=== PATIENT | female | born 1960 | race Caucasian/White ===

== ENCOUNTER 2023-11-22 00:13 | Emergency (ER) | payer OTHER, SELFPAY ==
[2023-11-22 00:14] VITALS: BP 171/96
[2023-11-22 00:54] LABS: % Basophils 0.3 % (0-2); % Eosinophils 0.5 % (0-6); % Immature Granulocytes 0.4 % (0-0.5); % Lymphocytes 12.7 % (20.5-51.1); % Monocytes 5.1 % (1.7-9.3); Absolute Eosinophils 0.1 10^3/uL (0-0.7); Absolute Immature Granulocytes 0.1 10^3/uL (0-0.05); Absolute Lymphocytes 1.6 10^3/uL (1.2-3.4); Absolute Monocytes 0.6 10^3/uL (0.1-0.6); Absolute Neutrophils 9.8 10^3/uL (1.4-6.5); Hematocrit 37.4 % (37.0-47.0); Hemoglobin 13.3 g/dL (12.0-16.0); Mean Corp Hgb Conc. 35.6 g/dL (33.0-37.0); Mean Corpuscular Hgb 30.9 pg (27.0-31.0); Mean Platelet Volume 9.4 fL (7.4-10.4); Nucleated Red Blood Cells % 0 %; Platelet Count 216 10^3/uL (130-400); Red Cell Dist. Width 12.4 % (11.5-14.5); White Blood Cell Count 12.2 10^3/uL (4.8-10.8)
[2023-11-22 01:09] LABS: ALT (SGPT) 17 U/L (0-35); AST (SGOT) 27 U/L (14-36); Albumin 4.7 g/dl (3.5-5.0); Alkaline Phosphatase 49 U/L (38-126); Blood Urea Nitrogen 20 mg/dl (7-17); Calcium 9.8 mg/dl (8.4-10.2); Carbon Dioxide 25 mmol/L (22-30); Chloride 107 mmol/L (98-107); Glucose 141 mg/dl (70-99); Lipase 432 U/L (23-300); Potassium 3.8 mmol/L (3.5-5.1); Sodium 142 mmol/L (135-145); Total Bilirubin 0.4 mg/dl (0.2-1.3); Total Protein 7.2 g/dl (6.3-8.2); eGFR > 60.00
--- NOTE | 2023-11-22 02:57 | ED.GENMED ---
History of Present Illness
<JORGE Evans - Last Filed: 11/24/23 17:56>
General
Chief Complaint: Abdominal Pain
Source: patient
Exam Limitations: none
Time Seen by Provider: 11/22/23 02:46
Travel History
Have you had any contact with someone who has COVID-19?: No
Do you have any symptoms of coronavirus? Fever > 100 degrees, chills, cough, shortness of breath, sore throat, loss of taste or smell, muscle aches, or headache?: No
History of Present Illness
History of Present Illness:
This is a 63 year old female that comes in with c/o left sided abd pain. States that her mom is in [facility] and they are here from [place] to get her settled. States that they have been doing a lot of running around. States that she started
with loose stool a few days ago. Then tonight about 9pm she had some left overs and a small glass of wine and with in minutes she started with vomiting. Denies any fever, chills, chest pain, SOB, diarrhea, headache, dizziness, urinary burning.
Past History
<JORGE Evans - Last Filed: 11/24/23 17:56>
Past History
ED Past Medical History: Asthma and Other (Diverticulitis, Renal calculus, )
ED Past Surgical History: Other (Left mastectomy with bilateral reconstruction)
Social History
Tobacco: Non-smoker
Alcohol: Occasional
Personal:
Living: alone
Review of Systems
<JORGE Evans - Last Filed: 11/24/23 17:56>
Review of Systems
All Other Systems: ROS reviewed and negative except as documented in HPI and ROS
Constitutional: Reports no symptoms; Denies fever or chills
EENT: Reports no symptoms
Respiratory: Reports no symptoms; Denies cough or trouble breathing
Cardiac: Reports no symptoms; Denies chest pain
ABD/GI: Reports abdominal pain, nausea and vomiting; Denies diarrhea
: Reports no symptoms; Denies dysuria, frequency or urgency
Musculoskeletal: Reports no symptoms
Skin: Reports no symptoms
Neurological: Reports no symptoms; Denies dizzy or headache
Psychiatric: Reports no symptoms
Phy Exam
<JORGE Evans - Last Filed: 11/24/23 17:56>
General Physical Exam
General Presentation: no apparent distress
General age: appears stated age
General Skin: warm and dry
General Habitus: normal
General Mental: alert
General Hydration: dry mucous membranes
ENT Exam
ENT Exam: TM's normal, pharynx normal and neck supple
Eye Exam
Eye Exam: EOMI
Cardiovascular Exam
Cardiovascular Exam: regular rate/rhythm, no edema, no murmur and normal peripheral pulses
Pulmonary Exam
Pulmonary Exam: lungs clear, no respiratory distress, no rales, chest non tender, no crackles, no rhonchi, no wheezing and no cough
Gastrointestinal Exam
Gastrointestinal Exam: normal bowel sounds, soft, no organomegaly, no pulsatile mass, non distended and tender (LLQ tenderness with palpation)
Musculoskeletal Exam
Musculoskeletal Exam: full ROM and no edema
Skin Exam
Skin Exam: normal color, warm/dry, no rash and no petechia
Psychiatric Exam
Psychiatric Exam: normal mood/affect
Course
<JORGE Evans - Last Filed: 11/24/23 17:56>
Orders/Labs/Results
Orders:
Orders
11/22/23 00:43
Complete Blood Count/With Diff Urgent
Comprehensive Metabolic Panel Urgent
Lipase Urgent
11/22/23 02:56
CT Abd/pel (oral only)-[facility] Only Urgent
Comment:
Reason For Exam: Left sided abd tenderness
0.9% Sodium Chloride 1000 ml [Nss] 1,000 ml IV BOLUS
Iohexol [Omnipaque] See Protocol PO NOW STA
11/22/23 02:58
Ondansetron Injectable [Zofran] 4 mg IV NOW STA
11/22/23 06:09
LevoFLOXacin [Levaquin] 500 mg PO NOW STA
MetroNIDAZOLE [Flagyl] 500 mg PO NOW STA
Abnormal Lab Results
11/22/23
00:43
WBC 12.2 H 10^3/uL
(4.8-10.8)
Abs Immat Gran (auto) 0.1 H 10^3/uL
(0-0.05)
Absolute Neuts (auto) 9.8 H 10^3/uL
(1.4-6.5)
Neutrophils % 81.0 H %
(42.2-75.2)
Lymphocytes % 12.7 L %
(20.5-51.1)
BUN 20 H mg/dl
(7-17)
Glucose 141 H mg/dl
(70-99)
Lipase 432 H U/L
(23-300)
11/22/23 00:43
11/22/23 00:43
Leukocytosis, Dehydration. Glucose nonfasting. Lipase slightly elevated (possible early Panreatitis).
Vital Signs
Initial and Last Documented VS:
Initial Vital Signs
Temp Pulse Resp BP Pulse Ox
97.5 F 83 16 171/96 99
11/22/23 00:14 11/22/23 00:14 11/22/23 00:14 11/22/23 00:14 11/22/23 00:14
Last Documented Vital Signs
Temp Pulse Resp BP Pulse Ox
97.5 F 82 12 142/88 99
11/22/23 00:14 11/22/23 06:00 11/22/23 06:00 11/22/23 06:00 11/22/23 06:00
<Jody Meyer, DO - Last Filed: 11/22/23 06:16>
Orders/Labs/Results
Orders:
Orders
11/22/23 00:43
Complete Blood Count/With Diff Urgent
Comprehensive Metabolic Panel Urgent
Lipase Urgent
11/22/23 02:56
CT Abd/pel (oral only)-[facility] Only Urgent
Comment:
Reason For Exam: Left sided abd tenderness
0.9% Sodium Chloride 1000 ml [Nss] 1,000 ml IV BOLUS
Iohexol [Omnipaque] See Protocol PO NOW STA
11/22/23 02:58
Ondansetron Injectable [Zofran] 4 mg IV NOW STA
11/22/23 06:09
LevoFLOXacin [Levaquin] 500 mg PO NOW STA
MetroNIDAZOLE [Flagyl] 500 mg PO NOW STA
Abnormal Lab Results
11/22/23
00:43
WBC 12.2 H 10^3/uL
(4.8-10.8)
Abs Immat Gran (auto) 0.1 H 10^3/uL
(0-0.05)
Absolute Neuts (auto) 9.8 H 10^3/uL
(1.4-6.5)
Neutrophils % 81.0 H %
(42.2-75.2)
Lymphocytes % 12.7 L %
(20.5-51.1)
BUN 20 H mg/dl
(7-17)
Glucose 141 H mg/dl
(70-99)
Lipase 432 H U/L
(23-300)
11/22/23 00:43
11/22/23 00:43
Vital Signs
Initial and Last Documented VS:
Initial Vital Signs
Temp Pulse Resp BP Pulse Ox
97.5 F 83 16 171/96 99
11/22/23 00:14 11/22/23 00:14 11/22/23 00:14 11/22/23 00:14 11/22/23 00:14
Last Documented Vital Signs
Temp Pulse Resp BP Pulse Ox
97.5 F 82 12 142/88 99
11/22/23 00:14 11/22/23 06:00 11/22/23 06:00 11/22/23 06:00 11/22/23 06:00
<JORGE Evans - Last Filed: 11/24/23 17:56>
MDM/Problems Addressed
Differential Diagnosis Includes:
Diverticulitis, Colitis,
MDM/Problems Addressed:
This is a 63 year old female that comes in with c/o LLQ abd pain that started tonight. States that for a few days she has had loose stool and tonight she started with pain and vomiting.
Will get labs and CT scan. Will give IV fluids, Zofran.
Chronic conditions affecting care:
History of diverticulitis
Acute Exacerbation and/or Progression of Chronic Illness:
Diverticulitis
<JORGE Evans - Last Filed: 11/24/23 17:56>
*Pulse Oximetry
Patient hypoxic: no
*EKG
Interpreted by ED Provider?: NA
Rate: EKG- N/A
*Soil And Plant Scientist Interpretation
Rate: Soil And Plant Scientist- N/A
*Critical Care Note
Total Time (30-74mins, 75-104mins- exclusive of procedures): Not Applicable
<Jody Meyer DO - Last Filed: 11/22/23 06:16>
*Radiology
Radiology exam reviewed: radiology read reviewed
ED Attending Note
<JORGE Evans - Last Filed: 11/24/23 17:56>
-
Portions of this chart may have been created with voice recognition software.� Occasional wrong word or��sound alike� substitutions may have occurred due to the inherent limitations of voice recognition software.
<Jody Meyer DO - Last Filed: 11/22/23 06:16>
ED Attending Note
Patient seen and examined by attending physician: Yes
I performed the substantive portion of visit, reviewed & personally made and approve the management plan that is documented in note by myself or NEFTALY.: Yes
I performed a history and physical exam of patient and discussed management with resident, I reviewed resident's note and agree with documented findings and plan of care.: Yes
ED Attending Note:
This is a 63-year-old woman visiting this area from [place]. She has remote history of diverticulitis having 1 previous episode approximately 12 years ago. She complains of left lower quadrant abdominal pain that began this evening around 9 PM
accompanied with nausea, vomiting. She has had a few loose stools over the past several days but denies black or bloody stools. Questionable mild chills tonight but does not believe she has been running a fever.
She is unsure if left lower quadrant as needed feels similar to previous episode of diverticulitis. She denies flank pain nor back pain. No dysuria and urgency and or hematuria.
Currently pain is mild. She has been offered pain medication which she kindly declines.
63-year-old woman appears her stated age, bright and alert, pleasant, appears in no acute distress.
Oral mucosa is moist.
Abdomen is soft, nondistended, mild to moderate tenderness left lower quadrant without rebound or guarding nor rigidity. No palpable masses. Normoactive bowel sounds.
Concern for diverticulitis, colitis, small bowel obstruction is less likely.
Labs show mildly elevated white blood cell count of 12.2.
Mild prerenal azotemia with BUN of 20, creatinine 0.8. Random glucose mildly elevated 141.
Lipase mildly elevated 432. Patient has no upper abdominal pain and other LFTs within normal limits. This may be reflective of several episodes of vomiting tonight.
Awaiting CT of the abdomen and pelvis.
11/22/2023 0615 AM
CAT scan shows normal appendix, no bowel obstruction, no obstructing renal stone. No cholecystitis.
This [facility] report there is no mention of colonic wall. Upon my personal review there is note of moderate sigmoid diverticulosis. There is concern for an element of mild sigmoid diverticulitis. No evidence of abscess nor free air.
Recommend retreat with 1 week course of Levaquin and Flagyl. She reports allergy to penicillin.
Recommend bowel rest, limiting diet to clear liquids over the next 2 days, slowly advance to soft bland foods as tolerated.
May take Tylenol as needed for discomfort.
Return precautions discussed.
Discharge Plan
Departure
Patient Disposition: Home (Routine Discharge)
Date of Disposition: 11/22/23
Time of Disposition: 06:10
Patient with high blood pressure during this ER visit?: No
Condition: Good
Discharge Problem:
Acute mild sigmoid diverticulitis
Instructions: Clear Liquid Diet, Diverticulitis (DC)
Prescriptions:
New
levofloxacin 500 mg tablet
500 mg PO DAILY 6 Days Qty: 6 0RF
metronidazole [Flagyl] 375 mg capsule
375 mg PO TID 6 Days Qty: 20 0RF
Referrals:
PRIVATE,PHYSICIAN [Family Provider] - As needed
Interventions
Interventions:
*Risk Screen - Suicide Last Done: 11/22/23 00:14
*General Assessment Last Done: 11/22/23 00:14
*Neglect/Abuse Screening Last Done: 11/22/23 00:14
ED- Fall Risk Assessment Last Done: 11/22/23 03:22
*ED COVID-19 Vaccine History Last Done: 11/22/23 03:31
*Nursing Disposition Last Done: 11/22/23 06:28
[facility] Assessment Last Done: 11/22/23 03:22
Discharge Date and Time
Discharge Date/Time: 11/22/23 06:29
Print Language: ALBANIAN
[2023-11-22] MEDS: OMNIPAQUE 50 ML PO (03:17)
[2023-11-22] MEDS: ZOFRAN 4 MG IV (03:18)
[2023-11-22] MEDS: NSS 1000 IV (03:19)
[2023-11-22 03:22] VITALS: BMI 17.8
[2023-11-22 04:00] VITALS: BP 156/90
[2023-11-22 06:00] VITALS: BP 142/88
[2023-11-22] MEDS: LEVAQUIN 500 MG PO (06:16)
[2023-11-22] MEDS: FLAGYL 500 MG PO (06:16)
== END 2023-11-22 06:29 | disposition home or self-care (01) ==
LOC: EMR 00:13
PROVIDERS: EMERGENCY PHYSICIAN Emergency Medicine
DX: K57.32 Diverticulitis of large intestine without perforation or abscess without bleeding (principal)
CPT/HCPCS: 99284; 96374; 96361; 74176; 80053; 83690; 85025